=== PATIENT | male | born 1970 | race African-American/Black ===

== ENCOUNTER 2018-12-26 14:00 | Emergency (ER) | payer OTHER ==
[~2018-12-26] VITALS: Ht 177.8 cm; Wt 95.3 kg
--- NOTE | 2018-12-26 14:09 | Emergency Room Report ---
History of Present Illness General Chief Complaint: Edema Source: Patient, EMS Present Illness HPI 48-year-old male history of CHF, with pacemaker, presents with shortness of breath, patient ran out of his Lasix 4 days ago, he takes 40 mg twice a day, he endorses dyspnea, orthopnea, aggravated by not having his Lasix alleviated by taking his Lasix, he also endorses weight gain and leg swelling, no nausea no vomiting, no chest pain, no abdominal pain patient presents for evaluation. Severity is severe symptoms are constant Allergies: Coded Allergies: No Known Allergies (Unverified , 12/26/18) Patient History Past Medical History: see triage record Reviewed Nursing Documentation: PMH: Agreed; PSxH: Agreed Nursing Documentation-PMH Past Medical History: No History, Except For Hx Hypertension: Yes Hx Pacemaker: Yes Hx Diabetes: Yes Review of Systems All Other Systems: negative except mentioned in HPI Physical Exam Vital Signs Date Time Temp Pulse Resp B/P (MAP) Pulse Ox O2 Delivery O2 Flow Rate FiO2 12/26/18 14:03 98.1 113 19 185/116 (139) 96 Room Air Sp02 EP Interpretation: reviewed, normal General Appearance: alert, mild distress Head: normocephalic, atraumatic Eyes: bilateral eye PERRL, bilateral eye EOMI ENT: uvula midline, moist mucus membranes Neck: supple, thyroid normal, supple/symm/no masses Respiratory: lungs clear, decreased breath sounds, accessory muscle use, other - Tachypnea Cardiovascular #1: normal peripheral pulses, regular rate, rhythm, no gallop, no murmur, JVD, edema - 3+ pitting edema to knees Gastrointestinal: non tender, soft, no guarding, no rebound Musculoskeletal: normal inspection Neurologic: alert, oriented x3 Psychiatric: mood/affect normal Skin: no rash, warm/dry Procedures Critical Care Time Critical Care Time Given the critical condition in which the patient arrived, the patient was immediately assessed by myself and the nurse, and cardiac monitoring initiated due to the potential for rapid decompensation of the patient's clinical condition. During the course of the patient's stay, I spent a considerable amount of time at the bedside performing serial re-evaluations of the patient's hemodynamic and clinical status because of the recognized potential threat to life or limb in this condition. I then had a chance to review not only all of the available current laboratory and radiographic studies obtained today, but I also reviewed old records available to me at the time. 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 Sequential vital signs were obtained. Critical Care time of 34 minutes was performed exclusive of billable procedures. Medical Decision Making Diagnostic Impression: Primary Impression: CHF exacerbation Qualified Codes: I50.9 - Heart failure, unspecified Additional Impressions: Pulmonary edema Qualified Codes: J81.0 - Acute pulmonary edema Dyspnea Qualified Codes: R06.00 - Dyspnea, unspecified ER Course 48-year-old male history of CHF exacerbation presents with acute shortness of breath, patient ran out of his Lasix 4 days ago, patient now with acute dyspnea , tachypnea, JVD. Patient given 2 rounds of 40 mg of IV Lasix, patient given Lovenox for troponinemia, patient aspirin loaded Patient slowly improved, multiple re-evaluations later 4:38 PM patient is tolerating p.o., with improved shortness of breath Spoke with Dr. Og at 4:45pm will accept patient Laboratory Tests Test 12/26/18 14:35 White Blood Count 7.7 K/UL (4.8-10.8) Red Blood Count 4.84 M/UL (4.70-6.10) Hemoglobin 14.1 G/DL (14.2-18.0) L Hematocrit 44.4 % (42.0-52.0) Mean Corpuscular Volume 92 FL (80-99) Mean Corpuscular Hemoglobin 29.2 PG (27.0-31.0) Mean Corpuscular Hemoglobin Concent 31.8 G/DL (32.0-36.0) L Red Cell Distribution Width 18.8 % (11.6-14.8) H Platelet Count 192 K/UL (150-450) Mean Platelet Volume 5.9 FL (6.5-10.1) L Neutrophils (%) (Auto) 72.7 % (45.0-75.0) Lymphocytes (%) (Auto) 13.4 % (20.0-45.0) L Monocytes (%) (Auto) 11.6 % (1.0-10.0) H Eosinophils (%) (Auto) 1.5 % (0.0-3.0) Basophils (%) (Auto) 0.9 % (0.0-2.0) Prothrombin Time 12.9 SEC (9.30-11.50) H Prothrombin Time INR 1.2 (0.9-1.1) H PTT 30 SEC (23-33) Sodium Level 142 MMOL/L (136-145) Potassium Level 3.9 MMOL/L (3.5-5.1) Chloride Level 106 MMOL/L (98-107) Carbon Dioxide Level 21 MMOL/L (21-32) Anion Gap 15 mmol/L (5-15) Blood Urea Nitrogen 27 mg/dL (7-18) H Creatinine 1.6 MG/DL (0.55-1.30) H Estimate Glomerular Filtration Rate 56.0 mL/min (>60) Glucose Level 66 MG/DL (74-106) L Calcium Level 9.8 MG/DL (8.5-10.1) Total Bilirubin 1.8 MG/DL (0.2-1.0) H Direct Bilirubin 0.5 MG/DL (0.0-0.3) H Aspartate Amino Transferase (AST) 23 U/L (15-37) Alanine Aminotransferase (ALT) 16 U/L (12-78) Alkaline Phosphatase 89 U/L (46-116) Total Creatine Kinase 103 U/L (26-308) Creatine Kinase MB 2.8 NG/ML (0.0-3.6) Creatine Kinase MB Relative Index 2.7 Troponin I 0.076 ng/mL (0.000-0.056) Pro-B-Type Natriuretic Peptide 44304 pg/mL (0-125) H Total Protein 8.0 G/DL (6.4-8.2) Albumin 3.8 G/DL (3.4-5.0) Globulin 4.2 g/dL Albumin/Globulin Ratio 0.9 (1.0-2.7) L Lipase 100 U/L (73-393) EKG Diagnostic Results EKG Time: 14:11 EP Interpretation: Atrial paced, rate 89, QTc 537, left axis deviation, no acute ST elevations Rhythm Strip Diag. Results Rhythm Strip Time: 14:10 EP Interpretation: yes Rate: 94 Rhythm: other - A paced Chest X-Ray Diagnostic Results Chest X-Ray Diagnostic Results : Chest X-Ray Ordered: Yes # of Views/Limited/Complete: 1 View Indication: Shortness of Breath EP Interpretation: Yes Interpretation: other - Pulmonary edema Impression: Other - Pulmonary edema Electronically Signed by: Mario Brooks MD Last Vital Signs Date Time Temp Pulse Resp B/P (MAP) Pulse Ox O2 Delivery O2 Flow Rate FiO2 12/26/18 14:03 98.1 113 19 185/116 (139) 96 Room Air Disposition: XFER SHT-TRM HOSP Condition: Stable Mario Brooks MD Dec 26, 2018 14:09
[2018-12-26 14:32] VITALS: BP 169/92
--- NOTE | 2018-12-26 14:40 | NUR ---
ED Nurse Note:pt. came from home with SOB and CHF exacerbation, has bilateral pedal edema, ambulatory with cane, placed on residential monitor and blood sent to labs, given IV lasix
[2018-12-26 14:52] LABS: BASOPHILS % (AUTO) 0.9 % (0.0-2.0); EOSINOPHILS % (AUTO) 1.5 % (0.0-3.0); HEMATOCRIT 44.4 % (42.0-52.0); HEMOGLOBIN 14.1 G/DL (14.2-18.0); LYMPHOCYTES % (AUTO) 13.4 % (20.0-45.0); MEAN CORPUSCULAR VOLUME 92 FL (80-99); MONOCYTES % (AUTO) 11.6 % (1.0-10.0); NEUTROPHILS % (AUTO) 72.7 % (45.0-75.0); PLATELET COUNT 192 K/UL (150-450); RED BLOOD COUNT 4.84 M/UL (4.70-6.10); RED CELL DISTRIBUTION WIDTH 18.8 % (11.6-14.8); WHITE BLOOD COUNT 7.7 K/UL (4.8-10.8)
[2018-12-26 15:01] LABS: INR 1.2 (0.9-1.1)
[2018-12-26] MEDS ORDERED: FUROSEMIDE80 M1 ORAL (15:05)
[2018-12-26] MEDS ORDERED: ASPIRIN81 MG ORAL (15:05)
[2018-12-26] MEDS ORDERED: cholesterol pill PO (15:05)
[2018-12-26] MEDS ORDERED: BP med PO (15:05)
[2018-12-26 15:09] LABS: ANION GAP 15 mmol/L (5-15); BLOOD UREA NITROGEN 27 mg/dL (7-18); CALCIUM 9.8 MG/DL (8.5-10.1); CARBON DIOXIDE 21 MMOL/L (21-32); CHLORIDE 106 MMOL/L (98-107); CREATININE 1.6 MG/DL (0.55-1.30); POTASSIUM 3.9 MMOL/L (3.5-5.1); SODIUM 142 MMOL/L (136-145)
[2018-12-26 15:32] LABS: ALANINE AMINOTRANSFERASE 16 U/L (12-78); ALBUMIN 3.8 G/DL (3.4-5.0); ALBUMIN/GLOBULIN RATIO 0.9 (1.0-2.7); ALKALINE PHOSPHATASE 89 U/L (46-116); ASPARTATE AMINO TRANSFERASE 23 U/L (15-37); BILIRUBIN,TOTAL 1.8 MG/DL (0.2-1.0); CKMB 2.8 NG/ML (0.0-3.6); CREATINE KINASE 103 U/L (26-308)
--- NOTE | 2018-12-26 15:38 | NUR ---
ED Nurse Note:pt. was given food and juices per his request and then rechecked MD HIEN notified
[2018-12-26 15:53] LABS: BILIRUBIN,DIRECT 0.5 MG/DL (0.0-0.3)
[2018-12-26] MEDS ORDERED: Enoxaparin 100mg Inj SUBQ ONE (16:00)
[2018-12-26 16:35] VITALS: BP 180/110
[2018-12-26 17:25] VITALS: BP 169/89
[2018-12-26] MEDS ORDERED: Nitroglycerin 2% oint pkt TOPIC ONE (18:15)
[2018-12-26 18:27] VITALS: BP 169/89
--- NOTE | 2018-12-26 18:28 | NUR ---
ED Nurse Note:called report to [facility], given report to love [facility]inal[facility]. was taken by transport
--- NOTE | 2018-12-27 14:23 | Cardiology Report ---
APPROVED REPORT EKG Measurement Heart [id number] Sinus and biventricular paced rhythm.
--- NOTE | 2018-12-27 14:31 | Diagnostic Imaging Report ---
Indication: Dyspnea Comparison: None A single view chest radiograph was obtained. Findings: Pulmonary vascular congestion demonstrated with interstitial densities some alveolar densities, cardiomegaly. Pacemaker noted on the left. IMPRESSION: CHF
== END 2018-12-26 18:34 | disposition short-term general hospital (02) ==
LOC: EDBD 14:00 → EMR 14:30
DX: I50.9 Heart failure, unspecified (principal); J81.0 Acute pulmonary edema; R06.00 Dyspnea, unspecified; Z95.0 Presence of cardiac pacemaker; E11.9 Type 2 diabetes mellitus without complications; I11.0 Hypertensive heart disease with heart failure
CPT/HCPCS: 36415; 71045; 80053; 82248; 82550; 82553; 82962; 83690; 83880; 84484; 85025; 85610; 85730; 93005; 96372; 96374; J1650; J1940; Z7502; 99291